=== PATIENT | female | born 1940 | race Two or more races ===

== ENCOUNTER 2018-03-27 14:07 | Emergency (ER) | payer OTHER ==
[~2018-03-27] VITALS: Ht 160 cm; Wt 68.0 kg
[2018-03-27 14:16] VITALS: BP 139/58
== END 2018-03-27 16:02 | disposition home or self-care (01) ==
LOC: ER 14:15
DX: S01.83XA Puncture wound without foreign body of other part of head, initial encounter (principal); S50.01XA Contusion of right elbow, initial encounter; J45.909 Unspecified asthma, uncomplicated; E11.9 Type 2 diabetes mellitus without complications; I10 Essential (primary) hypertension; Z88.6 Allergy status to analgesic agent; W01.0XXA Fall on same level from slipping, tripping and stumbling without subsequent striking against object, initial encounter; Y93.01 Activity, walking, marching and hiking; Y92.89 Other specified places as the place of occurrence of the external cause; Y99.8 Other external cause status
CPT/HCPCS: 70450